=== PATIENT | female | born 1940 | race Caucasian/White ===

== ENCOUNTER 2016-11-24 20:34 | Observation (INO) | payer OTHER ==
[~2016-11-24] VITALS: Ht 165.1 cm; Wt 62.7 kg
[~2016-11-24 20:34] MED LIST: ACIDOPHILUS1 EAC4 PO; ALDACTONE25 MG PO; ATIVAN0.5 MG PO; CEFTIN250 MG PO; CLARITIN,ALAVAR10 MG PO; COUMADIN1 MG PO; DEPAKOTE ER250 MG PO; DEPAKOTE125 MG PO; DEPAKOTE250 MG PO; DIGITEK250 MC2 PO; DIGOX125 MCG PO; DIGOX250 MCG PO; DIGOXIN125 MCG PO; DIGOXIN250 MCG PO; DIOVAN; DIOVAN40 MG PO; DIOVAN80 MG PO; DIVALPROEX SOD500 M1 PO; FLONASE16 G1 BOTH NARES; FUROSEMIDE20 MG PO; FUROSEMIDE40 MG PO; GABAPENTIN100 MG PO; K-TAB10 MEQ PO; KLOR-CON 1010 ME1 PO; LASIX20 MG PO; LEVETIRACETAM500 MG PO; LOPRESSOR50 MG PO; LORAZEPAM0.5 MG PO; METOPROLOL SUCC50 MG PO; OXAYDO5 MG PO; OXYCODONE HCL5 MG PO; PANTOPRAZOLE SO20 MG PO; PEPCID AC20 MG PO; PRADAXA150 MG PO; PROBIOTIC1 EAC1 PO; PROTONIX20 MG PO; PROTONIX40 MG PO; RANITIDINE HCL150 MG PO; RESCUE REMEDY SL; ROXICODONE5 MG PO; ROZEREM8 MG PO; SENNA S TABLET1 EACH PO; SERTRALINE HCL25 MG PO; TOPROL XL100 MG PO; TOPROL XL25 MG PO; TUMS500 MG PO; TYLENOL REGULA325 MG PO; VALSARTAN80 MG PO; WARFARIN SODIUM1 MG PO; ZANTAC150 MG PO; ZOFRAN4 MG PO; ZOLOFT25 MG PO
[2016-11-24 21:25] LABS: HEMATOCRIT 37.3 % (36.0-46.0); MCH 31.5 PG (29.0-34.0); MCHC 33.5 G/DL (30.0-36.0); MEAN PLAT.VOLUME 10.6 uM^3 (9.5-12.4); PLATELET COUNT 256 K/uL (156-360); RBC DIS.WIDTH-CV 13.5 % (11.8-14.6); RBC DIS.WIDTH-SD 44.8 % (39-53); RED BLOOD COUNT 3.97 M/uL (3.80-5.20); WHITE BLOOD COUNT 9.4 K/uL (4.1-10.2)
[2016-11-24 21:37] LABS: CHLORIDE 100 mEq/L (99-109); POTASSIUM 4.4 mEq/L (3.7-5.4); SODIUM 138 mEq/L (136-147)
[2016-11-24 21:39] LABS: GLUCOSE 139 mg/dL (70-99)
[2016-11-24 21:40] LABS: ANION GAP 15 MEQ/L (2-14)
[2016-11-24 21:43] LABS: GFR ESTIMATE (CALCULATED) 39 mL/min/
[2016-11-24 21:44] LABS: UREA NITROGEN (BUN) 27 mg/dL (9-23)
[2016-11-24 21:48] LABS: INTER. NORMALIZED RATIO 2.3; PROTHROMBIN TIME 23.7 (9.2-11.2); PTT 33.3 (25-32)
[2016-11-24 21:58] LABS: TROP-I INTERPRETATION NEGATIVE; TROPONIN-I 0.02 ng/mL (0.0-0.30)
[2016-11-24 22:07] LABS: SAMPLE HEMOLYSIS CHECK 0; SAMPLE ICTERIC CHECK 0; SAMPLE LIPEMIA CHECK 0
[2016-11-24] MEDS ORDERED: DEPAKOTE125 MG PO ×2 (22:36→22:38)
[2016-11-24] MEDS ORDERED: THERAGRAN1 TABLET PO (22:39)
[2016-11-24] MEDS ORDERED: LAXATIVE5 M1 PO (22:40)
[2016-11-24] MEDS ORDERED: OXAYDO5 MG PO (22:41)
[2016-11-25 13:58] LABS: HEMATOCRIT 37.3 % (36.0-46.0); MCH 30.7 PG (29.0-34.0); MCHC 32.7 G/DL (30.0-36.0); MEAN PLAT.VOLUME 10.7 uM^3 (9.5-12.4); PLATELET COUNT 239 K/uL (156-360); RBC DIS.WIDTH-CV 13.8 % (11.8-14.6); RBC DIS.WIDTH-SD 45.5 % (39-53); RED BLOOD COUNT 3.97 M/uL (3.80-5.20)
[2016-11-25 14:19] LABS: CHLORIDE 106 mEq/L (99-109); POTASSIUM 4.6 mEq/L (3.7-5.4); SODIUM 141 mEq/L (136-147)
[2016-11-25 14:22] LABS: ANION GAP 10 MEQ/L (2-14)
[2016-11-25 14:24] LABS: GLUCOSE 94 mg/dL (70-99)
[2016-11-25 14:25] LABS: GFR ESTIMATE (CALCULATED) 47 mL/min/
[2016-11-25 14:26] LABS: UREA NITROGEN (BUN) 22 mg/dL (9-23)
[2016-11-25 16:27] VITALS: BP 146/64
[2016-11-25 23:01] LABS: INTER. NORMALIZED RATIO 1.8; PROTHROMBIN TIME 18.5 (9.2-11.2)
[2016-11-26 07:18] LABS: INTER. NORMALIZED RATIO 1.7; PROTHROMBIN TIME 17.1 (9.2-11.2)
== END 2016-11-26 09:56 | disposition home or self-care (01) ==
LOC: EME → EDBD 20:34 → EME 20:34 → EDOF 11-25 01:38 → 5WEST 11-25 01:38 → EDOF 11-25 01:38 → 5WEST 11-25 15:07
PROVIDERS: Internal Medicine; Physician Assistant
DX: G40.901 Epilepsy, unspecified, not intractable, with status epilepticus (principal); I48.1 Persistent atrial fibrillation; I13.0 Hypertensive heart and chronic kidney disease with heart failure and stage 1 through stage 4 chronic kidney disease, or unspecified chronic kidney disease; E11.22 Type 2 diabetes mellitus with diabetic chronic kidney disease; N18.3 Chronic kidney disease, stage 3 (moderate); E78.5 Hyperlipidemia, unspecified; I50.22 Chronic systolic (congestive) heart failure; I69.354 Hemiplegia and hemiparesis following cerebral infarction affecting left non-dominant side; Z79.01 Long term (current) use of anticoagulants; Z88.8 Allergy status to other drugs, medicaments and biological substances; Z82.49 Family history of ischemic heart disease and other diseases of the circulatory system; Z95.810 Presence of automatic (implantable) cardiac defibrillator
CPT/HCPCS: 70450; 71020; 80048; 80164; 83880; 84484; 85027; 85610; 85730; 93005; 99281; 99285; G0378; J7040

== ENCOUNTER 2017-11-15 14:14 | Observation (INO) | payer OTHER ==
[~2017-11-15] VITALS: Ht 165.1 cm; Wt 70.0 kg
[~2017-11-15 14:14] MED LIST changes: +COLACE CLEAR50 MG PO; +DIGITEK125 MC2 PO; +THERAGRAN1 TABLET PO
[2017-11-15 15:48] LABS: HEMATOCRIT 38.2 % (36.0-46.0); HEMOGLOBIN 12.8 G/DL (11.9-15.5); MCH 32.2 PG (29.0-34.0); MCHC 33.5 G/DL (30.0-36.0); MCV 96.2 FL (83-99); PLATELET COUNT 203 K/uL (156-360); RBC DIS.WIDTH-CV 12.9 % (11.8-14.6); RBC DIS.WIDTH-SD 46.4 % (39-53); RED BLOOD COUNT 3.97 M/uL (3.80-5.20); WHITE BLOOD COUNT 12.2 K/uL (4.1-10.2)
[2017-11-15 15:58] LABS: CHLORIDE 96 mEq/L (99-109); POTASSIUM 4.8 mEq/L (3.7-5.4); SODIUM 135 mEq/L (136-147)
[2017-11-15 16:01] LABS: GLUCOSE 103 mg/dL (70-99); TOTAL PROTEIN 7.2 g/dL (6.4-8.3)
[2017-11-15 16:03] LABS: TOTAL BILIRUBIN 0.5 mg/dL (0.0-1.0)
[2017-11-15 16:04] LABS: ALKALINE PHOSPHATASE 53 IU/L (3-129); CREATININE 1.7 mg/dL (0.6-1.3); GFR ESTIMATE (CALCULATED) 31 mL/min/
[2017-11-15 16:06] LABS: AST (GOT) 37 IU/L (2-34); DIRECT BILIRUBIN 0.3 mg/dL (0.0-0.3); UREA NITROGEN (BUN) 23 mg/dL (9-23)
[2017-11-15 16:07] LABS: ALT (GPT) 42 IU/L (3-49)
[2017-11-15 16:09] LABS: TROP-I INTERPRETATION NEGATIVE; TROPONIN-I < 0.01 ng/mL (0.0-0.30)
[2017-11-15 17:37] LABS: APPEARANCE SL.HAZY ((CLEAR)); BILIRUBIN NEGATIVE; BLOOD NEGATIVE; COLOR YELLOW ((YELLOW)); GLUCOSE (STRIP) NEGATIVE; KETONES NEGATIVE; LEUKOCYTES LARGE; NITRITE NEGATIVE; PROTEIN (STRIP) NEGATIVE; UROBILINOGEN 0.2 MG/DL (0.2-1.0)
[2017-11-15 17:51] LABS: BACTERIA RARE /HPF; EPITHELIAL CELLS RARE /HPF; HYALINE CASTS 15-20 /LPF; MUCUS TRACE /LPF; RED BLOOD CELLS 0-5 /HPF (0-5); UCUL ADDED? YES; WHITE BLOOD CELLS 40-50 /HPF (0-5)
[2017-11-15] MEDS ORDERED: TOPROL XL50 MG PO (18:18)
[2017-11-15] MEDS ORDERED: LASIX40 MG PO (18:20)
[2017-11-15] MEDS ORDERED: DEPAKOTE250 MG PO (18:22)
[2017-11-15] MEDS ORDERED: GABAPENTIN400 MG PO (18:24)
[2017-11-15] MEDS ORDERED: DRONABINOL2.5 MG PO (18:27)
[2017-11-15] MEDS ORDERED: WARFARIN SODIUM1 MG PO (18:31)
[2017-11-15] MEDS ORDERED: [UNRECOGNIZED DRUG - OTHER] (18:31)
[2017-11-15] MEDS ORDERED: OXYCODONE HCL5 MG PO (18:34)
[2017-11-15 21:30] VITALS: BP 129/61
[2017-11-15 22:06] LABS: INTER. NORMALIZED RATIO 2.4
[2017-11-16 06:09] LABS: BASOPHIL (%) 0.7 % (0-1); BASOPHIL COUNT 0.1 K/uL (0-0.1); EOSINOPHIL (%) 5.5 % (0-5); EOSINOPHIL COUNT 0.5 K/uL (0-0.3); HEMATOCRIT 32.9 % (36.0-46.0); HEMOGLOBIN 11.2 G/DL (11.9-15.5); LYMPHOCYTE (%) 9.1 % (15-42); LYMPHOCYTE COUNT 0.8 K/uL (1.0-2.8); MCH 32.7 PG (29.0-34.0); MCV 96.2 FL (83-99); MONOCYTE (%) 14.8 % (3-12); MONOCYTE COUNT 1.3 K/uL (0-0.8); NEUTROPHIL (%) 68.9 % (45-76); NEUTROPHIL COUNT 6.1 K/uL (1.8-6.4); PLATELET COUNT 171 K/uL (156-360); RBC DIS.WIDTH-CV 13.2 % (11.8-14.6); RBC DIS.WIDTH-SD 46.4 % (39-53); RED BLOOD COUNT 3.42 M/uL (3.80-5.20); WHITE BLOOD COUNT 8.8 K/uL (4.1-10.2)
[2017-11-16 09:10] VITALS: BP 139/73
[2017-11-16 14:29] LABS: INTER. NORMALIZED RATIO 2.5
[2017-11-16 17:04] VITALS: BP 131/60
[2017-11-16 19:32] VITALS: BP 109/59
[2017-11-16 23:40] VITALS: BP 143/65
[2017-11-17 04:07] VITALS: BP 146/63
[2017-11-17 06:26] LABS: HEMATOCRIT 34.7 % (36.0-46.0); HEMOGLOBIN 11.3 G/DL (11.9-15.5); MCH 31.4 PG (29.0-34.0); MCHC 32.6 G/DL (30.0-36.0); MCV 96.4 FL (83-99); PLATELET COUNT 199 K/uL (156-360); RBC DIS.WIDTH-CV 12.8 % (11.8-14.6); RBC DIS.WIDTH-SD 45.9 % (39-53); WHITE BLOOD COUNT 8.5 K/uL (4.1-10.2)
[2017-11-17 06:33] LABS: INTER. NORMALIZED RATIO 2.6
[2017-11-17 06:53] LABS: CHLORIDE 103 MEQ/L (99-109); CREATININE 1.3 MG/DL (0.6-1.3); GFR ESTIMATE (CALCULATED) 42 mL/min/; GLUCOSE 126 mg/dL (70-99); MAGNESIUM 2.2 mg/dl (1.3-2.7); POTASSIUM 4.8 MEQ/L (3.7-5.4); SODIUM 141 MEQ/L (136-147); UREA NITROGEN (BUN) 20 mg/dL (9-23)
[2017-11-17 10:01] VITALS: BP 132/60
[2017-11-17 15:48] VITALS: BP 150/67
[2017-11-17 20:00] VITALS: BP 121/59
[2017-11-17 23:50] VITALS: BP 147/65
[2017-11-18 08:15] VITALS: BP 156/68
[2017-11-18 09:03] LABS: INTER. NORMALIZED RATIO 2.5
[2017-11-18 11:31] VITALS: BP 124/58
[2017-11-18] MEDS ORDERED: COUMADIN1 MG PO ×2 (13:59)
[2017-11-18] MEDS ORDERED: LOSARTAN POTASS25 MG PO (13:59)
== END 2017-11-18 16:19 ==
LOC: EME 14:14 → 5WEST 19:27 → EDOF 19:27 → ENRESERV 19:40 → 5WEST 20:52
PROVIDERS: Hospitalist; Internal Medicine; Physician Assistant; Physician Assistant Medical
DX: N30.00 Acute cystitis without hematuria (principal); N17.9 Acute kidney failure, unspecified; I13.0 Hypertensive heart and chronic kidney disease with heart failure and stage 1 through stage 4 chronic kidney disease, or unspecified chronic kidney disease; I50.22 Chronic systolic (congestive) heart failure; E11.22 Type 2 diabetes mellitus with diabetic chronic kidney disease; N18.3 Chronic kidney disease, stage 3 (moderate); E78.5 Hyperlipidemia, unspecified; I48.2 Chronic atrial fibrillation; K21.9 Gastro-esophageal reflux disease without esophagitis; E87.1 Hypo-osmolality and hyponatremia; F32.9 Major depressive disorder, single episode, unspecified; F41.9 Anxiety disorder, unspecified; G40.909 Epilepsy, unspecified, not intractable, without status epilepticus; I42.0 Dilated cardiomyopathy; I69.354 Hemiplegia and hemiparesis following cerebral infarction affecting left non-dominant side; K59.00 Constipation, unspecified; Z95.810 Presence of automatic (implantable) cardiac defibrillator; R47.81 Slurred speech; R51 Headache; R42 Dizziness and giddiness; R91.8 Other nonspecific abnormal finding of lung field; Z88.6 Allergy status to analgesic agent; Z79.01 Long term (current) use of anticoagulants; R41.82 Altered mental status, unspecified; R10.9 Unspecified abdominal pain
CPT/HCPCS: 70450; 71046; 74176; 76705; 80048; 80076; 81003; 83735; 84484; 85025; 85027; 85610; 87040; 87086 GA; 87502; 93005; 99281; 99285; G0378; G8978 GP CM; G8979 CJ; G8980 GP CM; G8987 CK; G8988 CI; G8989 GO CK; J0696; J7030; J7120; Q0167

== ENCOUNTER 2018-03-19 22:52 | Inpatient (IN) | payer OTHER ==
[~2018-03-19] VITALS: Ht 165.1 cm; Wt 64.4 kg
[~2018-03-19 22:52] MED LIST changes: +DRONABINOL2.5 MG PO; +GABAPENTIN400 MG PO; +LASIX40 MG PO; +LOSARTAN POTASS25 MG PO; +TOPROL XL50 MG PO; +[UNRECOGNIZED DRUG - OTHER]
[2018-03-19 23:30] LABS: BASOPHIL (%) 0.5 % (0-1); BASOPHIL COUNT 0.1 K/uL (0-0.1); EOSINOPHIL (%) 0.1 % (0-5); HEMATOCRIT 41.6 % (36.0-46.0); IMMATURE GRANULOCYTE (%) 0.8 % (0.0-0.7); LYMPHOCYTE (%) 4.7 % (15-42); LYMPHOCYTE COUNT 0.7 K/uL (1.0-2.8); MCH 31.9 PG (29.0-34.0); MCHC 33.7 G/DL (30.0-36.0); MCV 94.8 FL (83-99); MONOCYTE (%) 10.2 % (3-12); MONOCYTE COUNT 1.6 K/uL (0-0.8); NEUTROPHIL (%) 83.7 % (45-76); NEUTROPHIL COUNT 13.1 K/uL (1.8-6.4); PLATELET COUNT 246 K/uL (156-360); RBC DIS.WIDTH-CV 13.5 % (11.8-14.6); RBC DIS.WIDTH-SD 47.6 % (39-53); RED BLOOD COUNT 4.39 M/uL (3.80-5.20); WHITE BLOOD COUNT 15.6 K/uL (4.1-10.2)
[2018-03-19 23:39] LABS: CHLORIDE 96 mEq/L (99-109); POTASSIUM 4.4 mEq/L (3.7-5.4)
[2018-03-19 23:40] LABS: SODIUM 139 mEq/L (136-147)
[2018-03-19 23:41] LABS: GLUCOSE 170 mg/dL (70-99)
[2018-03-19 23:45] LABS: CREATININE 1.4 mg/dL (0.6-1.3); GFR ESTIMATE (CALCULATED) 39 mL/min/
[2018-03-19 23:46] LABS: UREA NITROGEN (BUN) 26 mg/dL (9-23)
[2018-03-20] VITALS (13 sets, daily range): BP systolic 121–150; BP diastolic 42–112
[2018-03-20 00:41] LABS: INTER. NORMALIZED RATIO 2.7
[2018-03-20 00:44] LABS: PTT 34.7 SEC (25-37)
[2018-03-20 01:10] LABS: ALBUMIN 4.4 g/dL (3.2-4.8)
[2018-03-20 01:13] LABS: TOTAL PROTEIN 7.6 g/dL (6.4-8.3)
[2018-03-20 01:14] LABS: TOTAL BILIRUBIN 0.8 mg/dL (0.0-1.0)
[2018-03-20 01:15] LABS: ALKALINE PHOSPHATASE 96 IU/L (3-129)
[2018-03-20 01:18] LABS: AST (GOT) 210 IU/L (2-34); DIRECT BILIRUBIN 0.5 mg/dL (0.0-0.3)
[2018-03-20 01:19] LABS: ALT (GPT) 184 IU/L (3-49); LIPASE 36 U/L (1.0-51.0)
[2018-03-20 01:25] LABS: DIGOXIN 1.1 ng/mL (0.8-2.0)
[2018-03-20] MEDS ORDERED: LASIX40 MG PO (02:09)
[2018-03-20] MEDS ORDERED: OXYCODONE HCL5 MG PO (02:09)
[2018-03-20] MEDS ORDERED: COUMADIN1 MG PO (02:12)
[2018-03-20] MEDS ORDERED: ACIDOPHILUS1 EAC4 PO (02:25)
[2018-03-20] MEDS ORDERED: DIOVAN40 MG PO (02:27)
[2018-03-20] MEDS ORDERED: DULCOLAX5 MG PO (02:28)
[2018-03-20] MEDS ORDERED: ZANTAC150 MG PO (02:29)
[2018-03-20] MEDS ORDERED: GAS-X125 M1 PO (02:30)
[2018-03-20] MEDS ORDERED: METAMUCIL0.4 GM PO (02:31)
[2018-03-20 03:20] LABS: APPEARANCE CLOUDY ((CLEAR)); BILIRUBIN NEGATIVE; BLOOD NEGATIVE; COLOR AMBER ((YELLOW)); GLUCOSE (STRIP) NEGATIVE; KETONES 5; LEUKOCYTES NEGATIVE; NITRITE NEGATIVE; PROTEIN (STRIP) NEGATIVE; SPECIFIC GRAVITY 1.014 (1.000-1.030); UROBILINOGEN 0.2 MG/DL (0.2-1.0)
[2018-03-20 03:22] LABS: BACTERIA RARE /HPF; EPITHELIAL CELLS NONE SEEN /HPF; MUCUS TRACE /LPF; RED BLOOD CELLS 0-5 /HPF (0-5); UCUL ADDED? NO; WHITE BLOOD CELLS 0-5 /HPF (0-5)
[2018-03-20 04:42] LABS: VALPROIC ACID (DEPAKOTE) 82.6 MCG/ML (50-100)
[2018-03-20 08:20] LABS: TROP-I INTERPRETATION NEGATIVE; TROPONIN-I 0.01 ng/mL (0.0-0.30)
[2018-03-20 08:24] LABS: ALKALINE PHOSPHATASE 74 IU/L (3-129); ALT (GPT) 138 IU/L (3-49); AST (GOT) 127 IU/L (2-34); CHLORIDE 102 MEQ/L (99-109); CREATININE 1.2 MG/DL (0.6-1.3); GFR ESTIMATE (CALCULATED) 46 mL/min/; GLUCOSE 136 mg/dL (70-99); POTASSIUM 4.9 MEQ/L (3.7-5.4); SODIUM 139 MEQ/L (136-147); TOTAL BILIRUBIN 0.6 MG/DL (0.0-1.0); TOTAL PROTEIN 6.4 G/DL (6.4-8.3); UREA NITROGEN (BUN) 24 mg/dL (9-23)
[2018-03-20 09:38] LABS: HEMATOCRIT 41.1 % (36.0-46.0); HEMOGLOBIN 13.5 G/DL (11.9-15.5); MCH 31.3 PG (29.0-34.0); MCHC 32.8 G/DL (30.0-36.0); MCV 95.4 FL (83-99); PLATELET COUNT 199 K/uL (156-360); RBC DIS.WIDTH-CV 13.8 % (11.8-14.6); RED BLOOD COUNT 4.31 M/uL (3.80-5.20); WHITE BLOOD COUNT 13.8 K/uL (4.1-10.2)
== END 2018-03-20 19:00 | disposition short-term general hospital (02) | DRG 871 ==
LOC: EME 22:52 → EDOF 03-20 02:33 → 4WEST 03-20 02:33 → ENRESERV 03-20 02:35 → EDOF 03-20 04:54 → ENRESERV 03-20 04:56 → 4WEST 03-20 05:44
PROVIDERS: Internal Medicine
DX: A41.9 Sepsis, unspecified organism (principal); K80.43 Calculus of bile duct with acute cholecystitis with obstruction; N17.9 Acute kidney failure, unspecified; R79.1 Abnormal coagulation profile; T45.515A Adverse effect of anticoagulants, initial encounter; E87.2 Acidosis; I13.0 Hypertensive heart and chronic kidney disease with heart failure and stage 1 through stage 4 chronic kidney disease, or unspecified chronic kidney disease; I50.23 Acute on chronic systolic (congestive) heart failure; E11.22 Type 2 diabetes mellitus with diabetic chronic kidney disease; N18.9 Chronic kidney disease, unspecified; I48.2 Chronic atrial fibrillation; I42.0 Dilated cardiomyopathy; I69.354 Hemiplegia and hemiparesis following cerebral infarction affecting left non-dominant side; I35.1 Nonrheumatic aortic (valve) insufficiency; G40.909 Epilepsy, unspecified, not intractable, without status epilepticus; R74.0 Nonspecific elevation of levels of transaminase and lactic acid dehydrogenase [LDH]; K59.00 Constipation, unspecified; K21.9 Gastro-esophageal reflux disease without esophagitis; E78.5 Hyperlipidemia, unspecified; F41.9 Anxiety disorder, unspecified; F32.9 Major depressive disorder, single episode, unspecified; Z95.810 Presence of automatic (implantable) cardiac defibrillator
CPT/HCPCS: 70450; 71045; 74176; 80048; 80053; 80076; 80162; 80164; 81003; 83605; 83690; 83880; 84484; 85025; 85027; 85610; 85730; 86850; 86900; 86901; 87040; 87077; 87186; 87641; 87801; 93005; 93306; 99281; 99285; J0295; J0696; J3370; J7030; J7050; Q0167; S0028; S0030